=== PATIENT | male | born 1975 | race Caucasian/White ===

== ENCOUNTER 2017-04-19 16:42 | Observation (INO) | payer OTHER, SELFPAY ==
[2017-04-19] VITALS (10 sets, daily range): BP systolic 128–160; BP diastolic 73–115; PULSE 78–99; RESP 12–24; TEMP 36.8–37.5; O2SAT 93–99; BMI 23.6
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
[2017-04-19] MEDS: HYDROmorphone 1 MG/ML Syringe 0.5 MG IV (16:57)
[2017-04-19] MEDS: 0.9% Normal Saline 1,000 ML 1000 ML IV (16:57)
[2017-04-19] MEDS: Ondansetron 4 MG/2 ML Vial IV ×2 (16:57→19:24)
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
[2017-04-19] MEDS: Propofol 200 MG/20 ML Vial IV BOLUS (17:43)
[2017-04-19] MEDS: Diphth,Pertuss(Acell),Tet Vac 0.5 ML Vial IM (17:43)
[2017-04-19] MEDS: HYDROmorphone 1 MG/ML Syringe IV ×4 (17:45→23:09)
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
[2017-04-19] MEDS: 0.9% Normal Saline 1,000 ML 150 ML IV (18:18)
[2017-04-19 18:31] LABS: Absolute Lymphocyte Count 2.84 X10^3/ul (0.83-4.51); Absolute Neutrophil Count 11.6 X10^3/uL (2.0-7.7); Basophil# 0.02 X10^3/uL; Basophil% 0.1 % (0-1); Eosinophil# 0.25 X10^3/uL; Eosinophils% 1.6 % (0-5); Hemoglobin 12.9 g/dl (13.0-16.5); Lymphocyte # 2.84 X10^3/ul (4.0); Lymphocyte % 18.1 % (19-41); Mean Corp Hgb Conc 32.3 g/gl (32-36); Mean Corpuscular Hgb 30.1 pg (27.0-32.0); Mean Corpuscular Volume 93.5 fL (80-94); Mean Platelet Vol. 9.8 fl (6.2-12.0); Monocyte% 6.4 % (0-10); Neutrophil # 11.57 X10^3/uL (2.7-7.7); Neutrophil % 73.5 % (47-70); Platelet Count 216 K/mm3 (150-450); RBC Distribution Width CV 13.3 % (11.6-14.6); RBC Distribution Width SD 45.1 fl (35.1-43.9); Red Blood Count 4.28 M/mm3 (4.6-6.2); White Blood Count 15.7 K/mm3 (4.4-11.0)
[2017-04-19 18:36] LABS: POSITIVE COUNT NO; POSITIVE DIFFERENTIAL NO; POSITIVE MORPHOLOGY NO
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
[2017-04-19 18:47] LABS: International Normalized Ratio 1.1; Prothrombin Time (Protime)PT. 13.6 SECONDS (11.7-14.9)
[2017-04-19 18:48] LABS: Partial Thromboplast Time 26.1 Seconds (24.1-36.2)
[2017-04-19 18:55] LABS: Anion Gap 8 (5-15); BUN 11 mg/dL (7-18); BUN/Creat Ratio 12.5 RATIO (10-20); Calcium,Total 8.2 mg/dL (8.5-10.1); Chloride 109 mmol/L (98-107); Creatinine, Serum 0.88 mg/dL (0.70-1.30); EST Glomerular Filtration Rate 100 mL/min (>60); Est Glom Filt Rate - Afr Amer 121 mL/min (>60); Estimated Creatinine Clearance 108.24 ml/min; Glucose 92 mg/dL (70-110); Potassium 3.9 mmol/L (3.5-5.1); Sodium Level 141 mmol/L (136-145)
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
[2017-04-19 20:08] LABS: Magnesium 1.9 mg/dL (1.8-2.4)
[2017-04-19] MEDS: Acetaminophen 325 MG Tablet 650 MG PO (21:33)
[2017-04-19] MEDS: oxyCODONE 5 MG Tablet PO (21:33)
[2017-04-19] MEDS: 0.9% Normal Saline 1,000 ML 125 ML IV (23:09)
[2017-04-20] VITALS (16 sets, daily range): BP systolic 112–136; BP diastolic 64–85; PULSE 84–108; RESP 16–22; TEMP 37–37.7; O2SAT 92–100; BMI 23.8
[2017-04-20] MEDS: oxyCODONE 5 MG Tablet PO (02:09)
[2017-04-20] MEDS: Acetaminophen 325 MG Tablet 650 MG PO (02:10)
[2017-04-20] MEDS: HYDROmorphone 1 MG/ML Syringe IV ×2 (04:55→16:40)
--- NOTE | 2017-04-20 05:00 | EKG12_ITS ---
Test Reason : PRE-OP Blood Pressure : / mmHG Vent. Rate : 073 BPM Atrial Rate : 073 BPM P-R Int : 124 ms QRS Dur : 080 ms QT Int : 356 ms P-R-T Axes : 068 068 049 degrees QTc Int : 392 ms Normal sinus rhythm with sinus arrhythmia Normal ECG No previous ECGs available Confirmed by COLT BEAL, YELITZA ([id number]), online content editor ARA MEDINA ([id number] on 05/01/2017 1:46:31 PM Referred By: NICOLAS Confirmed By:YELITZA GREGORY MD
[2017-04-20 05:57] LABS: Absolute Lymphocyte Count 2.86 X10^3/ul (0.83-4.51); Absolute Neutrophil Count 6.8 X10^3/uL (2.0-7.7); Basophil# 0.01 X10^3/uL; Basophil% 0.1 % (0-1); Eosinophil# 0.28 X10^3/uL; Eosinophils% 2.5 % (0-5); Hematocrit 38.2 % (40-54); Hemoglobin 12.3 g/dl (13.0-16.5); Lymphocyte # 2.86 X10^3/ul (4.0); Lymphocyte % 25.3 % (19-41); Mean Corp Hgb Conc 32.2 g/gl (32-36); Mean Corpuscular Hgb 30.3 pg (27.0-32.0); Mean Corpuscular Volume 94.1 fL (80-94); Mean Platelet Vol. 9.9 fl (6.2-12.0); Monocyte# 1.38 X10^3/uL; Monocyte% 12.2 % (0-10); Neutrophil # 6.77 X10^3/uL (2.7-7.7); Neutrophil % 59.7 % (47-70); Platelet Count 204 K/mm3 (150-450); RBC Distribution Width CV 13.2 % (11.6-14.6); RBC Distribution Width SD 45.6 fl (35.1-43.9); Red Blood Count 4.06 M/mm3 (4.6-6.2); White Blood Count 11.3 K/mm3 (4.4-11.0)
[2017-04-20 06:11] LABS: Anion Gap 9 (5-15); BUN 10 mg/dL (7-18); BUN/Creat Ratio 11.2 RATIO (10-20); Calcium,Total 8.1 mg/dL (8.5-10.1); Chloride 106 mmol/L (98-107); Creatinine, Serum 0.89 mg/dL (0.70-1.30); EST Glomerular Filtration Rate 99 mL/min (>60); Est Glom Filt Rate - Afr Amer 119 mL/min (>60); Estimated Creatinine Clearance 107.02 ml/min; Glucose 98 mg/dL (70-110); Potassium 3.7 mmol/L (3.5-5.1); Sodium Level 138 mmol/L (136-145)
[2017-04-20 06:17] LABS: POSITIVE COUNT NO; POSITIVE DIFFERENTIAL NO; POSITIVE MORPHOLOGY NO
--- NOTE | 2017-04-20 06:39 | NURSING ---
Report called to Gary in pre-op.
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
[2017-04-20] MEDS: 0.9% Normal Saline 1,000 ML 125 ML IV ×2 (06:48→12:05)
--- NOTE | 2017-04-20 07:30 | NURSING ---
pt being transported to surgery
--- NOTE | 2017-04-20 09:18 | CASEMGMT ---
RN CM attempted to complete a face to face with Pt however Pt was in surgery. Toyin Jordan, RN, BSN, CM
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
--- NOTE | 2017-04-20 10:44 | PCM.OP.BLANK ---
Operative Report Date of Procedure: 04/20/17 Preoperative diagnosis: Right tibia and fibula fracture, displaced, right elbow radial head fracture Postoperative diagnosis: same Title of operation: Reamed locked intramedullary right tibial nailing, exam under anesthesia right elbow Surgeon: Collins Noyola Irrigation Pump Installer: Harvey GARCIA Anesthesia: General Medications: Ancef Indications for surgery please refer to dictated consult note Indications for nursing surgical services director: Surgical DENTAL HYGIENE TEACHER was utilized throughout the entire procedure. They helped with patient positioning holding of the limb and holding of retractors. Helped with exposure throughout. They were vital in fracture reduction, maintenance of reduction with placement of guide bernardino, reaming, placement of intramedullary nail. They were also vital with placement of cross locking screws and maintaining limb alignment for such procedure. They were vital with wound closure, bandage, and splint application, and patient transfer. Without director medical surgical, surgical time would have been increased and surgical outcome could have been less optimal. Patient was taken to the OR and transferred to the OR table. General anesthetic was given. Appropriate timeouts performed. Ancef given. Nonoperative lower extremity had a MARTA hose and SCD on throughout. Operative lower extremity was prepped padded and draped in usual orthopedic sterile fashion for the procedure with the help of a physician certified anesthesiologist assistant. Incision was mapped out over the medial knee. Careful dissection brought us down medial to the patellar tendon. We dissected under the patellar tendon. Guidepin was placed centrally anteriorly. Position verified radiographically. We reamed the anterior cortex over that. We placed a slightly bent ball-tipped guide bernardino through that hole into the medullary canal of the tibia and while the certified anesthesiologist assistant held the fracture reduced. This was placed into the distal fracture fragment just above the ankle joint and verified with radiographs. We then reamed with a small reamer reaming up to a size {11.5}. Size {10} mm appropriately length nail was placed over the guide bernardino while the certified anesthesiologist assistant held the fracture reduced and limb in appropriate alignment. Guide bernardino removed. Fracture reduced nicely and was impacted by the certified anesthesiologist assistant. Cross lock screws placed proximal medial under dynamic mode. 2 distal cross locking screws placed with the help of the certified anesthesiologist assistant from medial to lateral. AP distal cross lock screw was also placed under same technique. X-rays taken throughout. Fibula fracture was adequately aligned at this point. Ankle joint was stable. Wounds thoroughly irrigated. Bernardino entry site closure in layers. Skin eusebio utilized. Xeroform 4 x 4's ABD and splint applied by the certified anesthesiologist assistant. Patient awoken from anesthetic and transferred to room bed in recovery room in satisfactory condition. Right elbow was examined and found to have no bony block to pronation supination. Also reasonable flexion extension without obvious bony block. Elbow splint reapplied. This note was generated with [employer] dictation software. It may contain incorrect words, spelling, and punctuation that were not noted in checking the note before signing.
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
[2017-04-20] MEDS: Ipratropium/Albuterol Sulfate 3 ML AMPUL.NEB INHALATION (11:28)
[2017-04-20] MEDS: Polyethylene Glycol 3350 17 GM PACKET PO (14:02)
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
--- NOTE | 2017-04-20 18:59 | PCM.DC.ORTHO ---
Discharge Activity: May Not Drive, May not drive while taking narcotic pain medications., May Not Shower, Use Walker Weight Bearing Status: No weight bearing Keep extremity elevated above heart level: Operative Extremity Call your doctor if your incision/area has: Increased Pain/ Swelling, Increased Redness, Foul Smelling Discharge Call your doctor if you observe: Fever of 101 or Higher, Numbness or Tingling, Inability to urinate, Shortness of breath, Chest pain, Calf discomfort, Uncontrolled pain Suture Line Care: Avoid Pulling/Pushing Cleanse incision/area with: Do not get Incision Wet, Keep Dressing Clean & Dry Allergies/Adverse Reactions: Allergies No Known Allergies Allergy (Verified 04/19/14 10:54) Medications to take at Discharge Acetaminophen [Tylenol Tablet] 650 mg PO Q4H PRN PRN tablet 04/20/17 Aspirin E.C. [Ecotrin] 325 mg PO DAILY@0800 tablet 04/20/17 Nicotine [Nicoderm Cq] 21 mg TRANSDERM. DAILY #10 patch 04/20/17 Oxycodone [Oxyir] 5 - 10 mg PO Q4H PRN PRN #30 tablet 04/20/17 The following prescriptions were given: Oxycodone [Oxyir] 5 - 10 mg PO Q4H PRN PRN #30 tablet PRN Reason: Severe Pain (6-05/29) Nicotine [Nicoderm Cq] 21 mg TRANSDERM. DAILY #10 patch Primary Care Physician: Care Physician,No Primary [Primary Care Provider] - Please Follow Up With: Collins Noyola - [phone] When: 1 week
--- NOTE | 2017-04-24 11:58 | CASEMGMT ---
POST DISCHARGE CALL MADE. PATIENT EXPRESSED UNDERSTANDING OF HOME CARE, PRESCRIPTION, AND DISCHARGE INSTRUCTIONS.
== END 2017-04-20 20:10 | disposition home or self-care (01) | DRG 494 ==
LOC: ED 05-14 09:33 → MS3 05-14 09:33
PROVIDERS: Family Medicine; Admitting Provider Orthopaedic Surgery; Emergency Provider Emergency Medicine; Visit Provider Internal Medicine
DX: S82.201A Unspecified fracture of shaft of right tibia, initial encounter for closed fracture (principal); F17.210 Nicotine dependence, cigarettes, uncomplicated; S52.121A Displaced fracture of head of right radius, initial encounter for closed fracture; S01.81XA Laceration without foreign body of other part of head, initial encounter; S82.401A Unspecified fracture of shaft of right fibula, initial encounter for closed fracture; V23.4XXA Motorcycle driver injured in collision with car, pick-up truck or van in traffic accident, initial encounter; Y92.410 Unspecified street and highway as the place of occurrence of the external cause; K21.9 Gastro-esophageal reflux disease without esophagitis
CPT/HCPCS: 01480; 12011; 27752; 27827; 29105; 36415; 70450; 71010; 72125; 73080; 73590; 73700; 76000; 80048; 83735; 85025; 85610; 85730; 90715; 93005; 94640; 97162; 97165; 99152; 99218; 99285; J7030; A4216; G0378; J0330; J2405; J3490

== ENCOUNTER 2018-02-26 01:59 | Emergency (ER) | payer OTHER, SELFPAY ==
[2018-02-26 02:00] VITALS: BP 148/83; PULSE 68; RESP 16; TEMP 36.7; O2SAT 98; BMI 24.3
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
--- NOTE | 2018-02-26 02:58 | ED.DEP ---
ED Disposition - Plan for ED Patient: Disposition: Home or Assisted Living Chief Complaint: Eye Problem Instructions: Ultraviolet Keratitis Referrals: Care Physician,No Primary [Primary Care Provider] - Jay Mitchell MD [STAFF PHYSICIAN] -
[2018-02-26] MEDS: Fluorescein 1 MG STRIP 1 STRIP EACH EYE (03:07)
[2018-02-26 03:09] VITALS: BP 132/80; PULSE 67; RESP 16; O2SAT 97
== END 2018-02-26 03:19 | disposition home or self-care (01) ==
LOC: ED 03:10
PROVIDERS: Emergency Provider Emergency Medicine
DX: H16.133 Photokeratitis, bilateral (principal); W89.8XXA Exposure to other man-made visible and ultraviolet light, initial encounter; Y93.89 Activity, other specified; Y92.9 Unspecified place or not applicable; Y99.9 Unspecified external cause status; Z72.0 Tobacco use
CPT/HCPCS: 99281